=== PATIENT | female | born 1965 | race Caucasian/White ===

== ENCOUNTER → 2022-09-16 10:50 | Outpatient (BNVA) | payer OTHER, SELFPAY | PROVIDERS: Referring Provider Internal Medicine; Visit Provider Nurse Practitioner | DX: R51.9 Headache, unspecified (principal); R53.83 Other fatigue | CPT/HCPCS: 36415; 80053; 84443; 85025; 85651 ==

== ENCOUNTER 2024-03-24 08:34 | Emergency (ER) | payer OTHER, SELFPAY ==
[2024-03-24 08:44] VITALS: BP 134/85; PULSE 81; RESP 18; TEMP 36.8; O2SAT 97; BMI 29.9
--- NOTE | 2024-03-24 08:51 | CTR_ITS ---
PROCEDURE INFORMATION: Exam: CT Head Without Contrast Exam date and time: 03/24/2024 9:18 AM Age: 59 years old Clinical indication: Pain; Headache; Additional info: VUONG TECHNIQUE: Imaging protocol: Computed tomography of the head without contrast. Radiation optimization: All CT scans at this facility use at least one of these dose optimization techniques: automated exposure control; mA and/or kV adjustment per patient size (includes targeted exams where dose is matched to clinical indication); or iterative reconstruction. COMPARISON: No relevant prior studies available. RADIATION DOSE METRICS: Total DLP (mGy-cm): 1001.28 FINDINGS: Brain: There is no evidence of acute parenchymal hemorrhage, extra-axial collection, or acute infarction. There is no mass effect, midline shift, or downward herniation. Cerebral ventricles: No ventriculomegaly. Paranasal sinuses: Visualized sinuses are unremarkable. No fluid levels. Mastoid air cells: Visualized mastoid air cells are well aerated. Bones: Unremarkable. No acute fracture. Soft tissues: Unremarkable. CT/CT head wo con* [id number] IMPRESSION: No acute intracranial abnormality.
--- NOTE | 2024-03-24 08:52 | W.ED.HA ---
HPI - Headache General: Chief Complaint: Headache Stated Complaint: Headache, head pain Time Seen by Provider: 03/24/24 08:39 Source: patient Mode of arrival: ambulatory Limitations: no limitations History of Present Illness: 59-year-old female states she has been having a headache for 5 years. States it is a daily headache states she has been seen multiple physicians and have not been able to tell her what is causing her headaches. She states she has been told it was a tension type headache. Patient states that 3 to 4 days ago she had felt a popping sensation in her head. Associated symptoms: Deny chest pain, fever(s), nausea, rash or vomiting Review of Systems Const: Denies: fever(s), chills, body aches or change in appetite ENMT: Denies: throat pain or dental pain Card: Denies: chest pain Resp: Denies: dyspnea GI: Denies: abdominal pain, nausea, vomiting or diarrhea Musc: Denies: neck pain or back pain Skin/Breast: Denies: rash Neuro: Reports: headache(s) PFS ED PFSH: Social History Smoking and tobacco/nicotine status: never used tobacco/nicotine Alcohol intake: never Substance/Drug Use: never Physical Exam Const: COMMON NORMALS: no acute distress, patient oriented x3 and healthy appearing HENMT: COMMON NORMALS: normocephalic and atraumatic HEAD & SCALP: normocephalic and atraumatic Eye: COMMON NORMALS: Equal, round and reactive pupils present and EOMs intact bilaterally PUPIL: Yes Equal, round and reactive pupils present Neck/C-Spine: COMMON NORMALS: full ROM and supple Chest: COMMONS NORMALS: normal inspection of the chest Resp: COMMON NORMALS: normal respiratory effort Cardio: COMMON NORMALS: regular rate, regular rhythm and No murmurs present (Cardio) RATE: regular rate RHYTHM: regular rhythm Extremity: COMMON NORMALS: normal to inspection and full ROM Neuro: COMMON NORMALS: patient oriented x3, moves all extremities and no focal motor deficits Psych: COMMON NORMALS: mental status grossly normal, Normal thought process present and cooperative THOUGHT PROCESS: Normal thought process present Skin: COMMON NORMALS: no rashes or lesions noted and no wounds GENERAL SKIN EXAM: no rashes or lesions noted Course Vital Signs: Vital signs: Vital Signs Temperature 98.2 F 06/23/24 08:44 Pulse Rate 74 03/24/24 08:56 Respiratory Rate 16 03/24/24 09:00 Blood Pressure 134/85 03/24/24 08:56 Pulse Oximetry 96 03/24/24 08:56 Oxygen Delivery Me thod Room Air 03/24/24 08:56 MDM - Headache Medical Decision Making Patient presents here with headache head CT here is normal headaches been going on for 5 years her headache has improved here she has follow-up with neurology next month she is to follow-up as scheduled return if worsening she understands agrees to plan Medical Records I reviewed the patient's medical records. Lab Data Radiology Impressions Head CT 03/24/24 08:51 IMPRESSION: No acute intracranial abnormality. All radiology interpretation(s) finalized by discharge Discharge Plan Discharge Patient Disposition: Home Clinical Impression: Headache Condition: Stable Prescriptions: No Action sulfamethoxazole-trimethoprim [Bactrim DS] 800-160 mg tablet 1 tab PO BID 7 Days Qty: 14 0RF clindamycin HCl 300 mg capsule 300 mg PO Q8H 7 Days Qty: 21 0RF amitriptyline 25 mg tablet 25 mg PO .hs Qty: 30 2RF Discharge Orders: Discharge ED (Routine); Ordered 03/24/24 Ordered By: Inez Weaver Referrals: Jay Pelayo MD [Primary Care Provider] - 1-3 days Discharge Diet: Advance as tolerated Discharge Activity: Resume usual activity Patient Instructions: Headache Coding Level of Care Code ED Customer Account Representative for Cecily Gonzalez
[2024-03-24 08:56] VITALS: BP 134/85; PULSE 74; O2SAT 96
[2024-03-24 09:00] VITALS: RESP 16
[2024-03-24] MEDS: morphine 4 mg/mL SDV 1 mL IVP (09:00)
[2024-03-24] MEDS: metoclopramide 5 mg/mL SDV 2 mL 10 MG IVP (09:00)
[2024-03-24] MEDS: diphenhydrAMINE 50 mg/mL SDV 1mL IVP (09:00)
[2024-03-24 11:15] VITALS: BP 134/85; PULSE 74; RESP 16; TEMP 36.8; O2SAT 96
== END 2024-03-24 11:27 | disposition home or self-care (01) ==
PROVIDERS: Emergency Provider Emergency Medicine; PCP Family Medicine
DX: R51.9 Headache, unspecified (principal)
CPT/HCPCS: 70450; 96374; 96375; 99285; J1200; J2270; J2765

== ENCOUNTER → 2024-04-16 09:24 | Outpatient (BNVA) | payer OTHER, SELFPAY | PROVIDERS: PCP Family Medicine; Visit Provider Psychiatry & Neurology Neurology | DX: E53.8 Deficiency of other specified B group vitamins; R51.9 Headache, unspecified; G62.9 Polyneuropathy, unspecified | CPT/HCPCS: 36415; 82306; 82607; 82746; 83090; 83921 ==

== ENCOUNTER 2024-08-15 08:05 | Outpatient (CLI) | payer OTHER, SELFPAY ==
--- NOTE | 2024-08-15 08:21 | MR_ITS ---
WS: [id number] MRA HEAD TECHNIQUE: Axial 3-D TOF images obtained with axial images and axial, sagittal, and coronal 2-D refor matted images. CLINICAL INFORMATION: R51.9 - Headache, unspecified COMPARISON: None. FINDINGS: Distal vertebral arteries are patent. Basilar artery is patent. Normal vascularity to the [place] territo ry bilaterally. Patent LEFT posterior communicating artery. Both ICAs are patent at the skull base. Patent anterior communicating artery. Normal vascularity to the [place] territory. Small RIGHT A1 segment . Normal vascularity to the MCA territories bilaterally. No evidence of high-grade proximal stenosis or aneurysm. MR/MR angio head wo con [id number] IMPRESSION: Unremarkable intracranial MRA.
--- NOTE | 2024-08-15 08:21 | MR_ITS ---
WS: [id number] MR CERVICAL SPINE WO/W HISTORY: R51.9 - Headache, unspecified TECHNIQUE: Sagittal T1, T2 and T2 inversion recovery; axial T2, T2 gradient and fiesta. Post gadolini um imaging with fat saturation technique. FINDINGS:Straightening with slight reversal of the normal cervical lordosis. No high grade central ca nal narrowing. Cord signal is normal. No abnormal gadolinium enhancement. C2-3: Spinal canal and foramen are patent. C3-4: Mild facet arthropathy. C4-5: Mild disc osteophytic ridging. Spinal canal and foramen are patent. C5-6: Mild disc osteophytic ridging. Mild LEFT and no significant RIGHT foraminal narrowing. Mild fac et arthropathy. Spinal canal is patent. C6-7: Mild disc bulging with slight effacement of the ventral thecal sac. Mild LEFT and no significan t RIGHT foraminal narrowing. Mild facet arthropathy. Spinal canal is patent. C7-T1: Mild facet arthropathy. Mild LEFT bony foraminal narrowing. MR/MR cervical spine wo/w [id number] IMPRESSION: 1. Straightening with slight reversal the normal cervical lordosis. 2. Cord signal is normal. No abnormal gadolinium enhancement. 3. Mild LEFT C5-C6 and C6-C7 bony foraminal narrowing. Mild LEFT C7-T1 bony fo raminal narrowing.
--- NOTE | 2024-08-15 08:21 | MR_ITS ---
WS: [id number] MRA CAROTID WITHOUT AND WITH GADOLINIUM ENHANCEMENT TECHNIQUE: Axial 2-D TOF and gadolinium bolus images obtained with axial images and axial, sagittal, and coronal 2-D reformatted images. CLINICAL INFORMATION: R51.9 - Headache, unspecified COMPARISON: None. FINDINGS: RIGHT: RIGHT common carotid artery is patent. No significant RIGHT ICA stenosis. RIGHT ICA is patent to the skull base. LEFT: LEFT common carotid artery is patent. No significant LEFT ICA stenosis. LEFT ICA is patent to the sku ll base. Codominant and patent vertebral arteries bilaterally. Proximal basilar artery is patent. MR/MR angio neck w con* [id number] IMPRESSION: 1. No significant cervical ICA stenosis. 2. Both vertebral arteries are patent.
[2024-08-15] MEDS: gadobenate dimeglumine 20 mL vial 17 ML IV (10:18)
== END 2024-08-15 08:06 | disposition home or self-care (01) ==
PROVIDERS: PCP Family Medicine; Visit Provider Psychiatry & Neurology Neurology
DX: R51.9 Headache, unspecified (principal)
CPT/HCPCS: 70544; 70548; 72156

== ENCOUNTER 2024-08-15 10:52 | Outpatient (CLI) | payer OTHER, SELFPAY | END 2024-08-15 10:53 | disposition home or self-care (01) | LOC: SPT 11:01 | PROVIDERS: PCP Family Medicine; Visit Provider Podiatrist Foot & Ankle Surgery | DX: Z46.89 Encounter for fitting and adjustment of other specified devices (principal); M25.371 Other instability, right ankle; M25.372 Other instability, left ankle | CPT/HCPCS: L3030 ==

== ENCOUNTER 2024-09-18 06:00 | Outpatient (RCR) | payer OTHER, SELFPAY | END 2024-10-01 23:59 | disposition home or self-care (01) | LOC: MPT 06:00 | PROVIDERS: Visit Provider Psychiatry & Neurology Neurology | DX: M54.2 Cervicalgia (principal) | CPT/HCPCS: 97110; 97162 ==

== ENCOUNTER 2024-10-02 06:30 | Outpatient (RCR) | payer OTHER, SELFPAY | END 2024-11-01 23:59 | disposition home or self-care (01) | LOC: MPT 06:30 | PROVIDERS: Visit Provider Psychiatry & Neurology Neurology | DX: M54.2 Cervicalgia (principal) | CPT/HCPCS: 97110; 97140; G0283 ==

== ENCOUNTER 2024-11-02 06:30 | Outpatient (RCR) | payer OTHER, SELFPAY | END 2024-11-29 23:59 | disposition home or self-care (01) | LOC: MPT 06:30 | PROVIDERS: Visit Provider Psychiatry & Neurology Neurology | DX: M54.2 Cervicalgia (principal) | CPT/HCPCS: 97110; 97140; G0283 ==

== ENCOUNTER → 2025-02-11 11:01 | Outpatient (BNVA) | payer OTHER, SELFPAY | PROVIDERS: Visit Provider Nurse Practitioner | DX: R63.5 Abnormal weight gain (principal); R53.83 Other fatigue | CPT/HCPCS: 84439; 84443; 84481 ==